=== PATIENT | male | born 1990 | race African-American/Black ===

== ENCOUNTER 2017-01-29 18:01 | Emergency (ER) | payer SELFPAY ==
[~2017-01-29] VITALS: Ht 180.3 cm; Wt 71.0 kg
[2017-01-29] MEDS ORDERED: KETOROLAC 60MG/2ML VIAL IM ONE (23:00)
[2017-01-29 23:08] VITALS: BP 130/79
== END 2017-01-30 01:33 | disposition home or self-care (01) ==
LOC: ER 18:02
DX: S62.393A Other fracture of third metacarpal bone, left hand, initial encounter for closed fracture (principal); S62.395A Other fracture of fourth metacarpal bone, left hand, initial encounter for closed fracture; F12.10 Cannabis abuse, uncomplicated; W22.01XA Walked into wall, initial encounter; Y93.89 Activity, other specified; Y92.018 Other place in single-family (private) house as the place of occurrence of the external cause
CPT/HCPCS: 29125; 73130; 96372; 99284; J1885